=== PATIENT | female | born 1980 | race Caucasian/White ===

== ENCOUNTER 2018-01-25 22:07 | Emergency (ER) | payer OTHER ==
[~2018-01-25] VITALS: Ht 162.6 cm; Wt 95.3 kg
[2018-01-25 22:10] VITALS: BP 131/81
--- NOTE | 2018-01-25 22:13 | NUR ---
TO LOBBY A/W BED, LAURE ORTEGA NOTED
--- NOTE | 2018-01-25 22:49 | NUR ---
Patient ambulated to bed 1. RN evaluating patient at bedside.
--- NOTE | 2018-01-25 22:50 | NUR ---
ASSUMED CARE OF PT AT THIS TIME. C/O NECK PAIN AND DIZZINESS X 2 DAYS. AAOX4 WITH EVEN AND STEADY GAIT; 10 AT THIS TIME; VSS; PATIENT POSITIONED FOR COMFORT; HOB ELEVATED; BEDRAILS UP X2; BED DOWN. ER MD MADE AWARE OF PT STATUS. WILL CONTINUE TO MONITOR.
[2018-01-25] MEDS ORDERED: KETOROLAC 60 MG/2 ML VIAL IM ONE (23:40)
--- NOTE | 2018-01-25 23:46 | NUR ---
Patient transferred to bed 2 for further care. RN evaluating patient at bedside.
[2018-01-26 01:20] VITALS: BP 128/84
[2018-01-26 01:20] LABS: APPEARANCE,URINE CLEAR (CLEAR); BILIRUBIN,URINE NEGATIVE (NEGATIVE); BLOOD, URINE NEGATIVE (NEGATIVE); COLOR,URINE YELLOW (YELLOW); LEUKOCYTE ESTERASE ,URINE 1+ (NEGATIVE); NITRITE, URINE POSITIVE (NEGATIVE); PH,URINE 5.5 (5.0-9.0); UGLUCOSE NEGATIVE (NEGATIVE)
--- NOTE | 2018-01-26 01:20 | NUR ---
Patient discharged with v/s stable. Written and verbal after care instructions given and explained. Patient alert, oriented and verbalized understanding of instructions. Ambulatory with steady gait. All questions addressed prior to discharge. ID band removed. Patient advised to follow up with PMD. Rx of SOMA AND NAPROSYN given. Patient educated on indication of medication including possible reaction and side effects. Opportunity to ask questions provided and answered.
[2018-01-26 01:21] LABS: RBC,URINE 0-5 (RARE) /HPF (0-5); WBC,URINE 20-60 /HPF (0-5)
== END 2018-01-26 01:20 | disposition home or self-care (01) ==
LOC: MED 22:07
DX: S13.4XXA Sprain of ligaments of cervical spine, initial encounter (principal); N39.0 Urinary tract infection, site not specified; X58.XXXA Exposure to other specified factors, initial encounter; Y93.89 Activity, other specified; Y99.8 Other external cause status; Y92.89 Other specified places as the place of occurrence of the external cause
CPT/HCPCS: 81001; 81025; 87086; 87186; 96372; 99284; J1885; 81002

== ENCOUNTER 2018-01-27 01:56 | Emergency (ER) | payer OTHER ==
[~2018-01-27] VITALS: Ht 162.6 cm; Wt 96.2 kg
[2018-01-27 01:59] VITALS: BP 167/102
--- NOTE | 2018-01-27 02:00 | NUR ---
37 Y/O F W/C/O ALLERGIC REACTION. PT STATES, "I CAME HERE TWO DAYS AGO AND WAS GIVEN PRESCRIPTION FOR A UTI AND FOR PAIN. I HAVE BEEN TAKING THEM. I TOOK THEM THIS MORNING AT 1100 AND THEN WOKE UP AT 1500 AND I WAS ITCHING ALL OVER MY BODY AND I HAVE A RASH ON L LEG. MY EYE LIDS ARE SWOLLEN TOO. RASHED NOTED ON L HIP AND LEG. PT DENIES ANY N/V/D/PAIN. PT DENIES SOB. NO S/S OF DISTRESS NOTED. DR. CHAPMAN MADE AWARE
[2018-01-27] MEDS ORDERED: diphenhydrAMINE 50 MG CAP PO ONE ×2 (02:15→02:21)
[2018-01-27 02:56] VITALS: BP 151/110
--- NOTE | 2018-01-27 02:56 | NUR ---
Patient discharged with v/s stable. Written and verbal after care instructions given and explained. Patient alert, oriented and verbalized understanding of instructions. Ambulatory with steady gait. All questions addressed prior to discharge. ID band removed. Patient advised to follow up with PMD. Rx of benadryl given. Patient educated on indication of medication including possible reaction and side effects. Opportunity to ask questions provided and answered.
== END 2018-01-27 02:56 | disposition home or self-care (01) ==
LOC: MED 01:56
DX: R21 Rash and other nonspecific skin eruption (principal); T42.8X5A Adverse effect of antiparkinsonism drugs and other central muscle-tone depressants, initial encounter; Y92.9 Unspecified place or not applicable
CPT/HCPCS: 99283; Q0163

== ENCOUNTER 2018-02-02 10:05 | Emergency (ER) | payer OTHER ==
[~2018-02-02] VITALS: Ht 162.6 cm; Wt 97.5 kg
[2018-02-02 10:13] VITALS: BP 130/92
--- NOTE | 2018-02-02 10:20 | NUR ---
PT. CAME INTO THE ED DUE TO NECK PAIN X 1 WEEK. PT. STATES " I CAME HERE A WEEK AGO WHEN IT STARTED, THEY TOLD ME IHAD A NECK SPRAIN AND A URINARY INFECTION, SO HE GAVE ME MEDICATION FOR THE NECK PAIN AND INFECTION, I HAD A REACTION TO THE SOMA THAT THE DOCTOR GAVE ME AND HE DIDNT GIVE ME ANYTHING ELSE AND IM HAVING PAIN STILL". PT. IS AAOX4, RR EVEN AND UNLABORED, PT. DENIES SOB, DENIES N/V/D. PT. HAS 6/10 PAIN IN NECK THAT IS DESCRIBED THROBBING AND RADIATES FROM R SHOULDER TO R SIDE OF NECK. ER MD NOTIFIED. WILL CONTINUE TO MONITOR.
--- NOTE | 2018-02-02 10:49 | NUR ---
ER MD AT BEDSIDE EVALUATING PATIENT
[2018-02-02] MEDS ORDERED: LIDOCAINE MPF 1% - **ER/OR** 10 MG/ML VIAL INJ ONE (10:55)
[2018-02-02 11:55] VITALS: BP 126/90
--- NOTE | 2018-02-02 11:55 | NUR ---
Patient discharged with v/s stable. Written and verbal after care instructions given and explained. Patient verbalized understanding. Ambulatory with steady gait. All questions addressed prior to discharge. Advised to follow up with PMD.
== END 2018-02-02 11:55 | disposition home or self-care (01) ==
LOC: MED 10:05
DX: M62.830 Muscle spasm of back (principal); R03.0 Elevated blood-pressure reading, without diagnosis of hypertension; Z88.8 Allergy status to other drugs, medicaments and biological substances
CPT/HCPCS: 20552; 99284; J2001

== ENCOUNTER 2018-06-03 14:19 | Emergency (ER) | payer OTHER ==
[~2018-06-03] VITALS: Ht 162.6 cm; Wt 97.5 kg
[2018-06-03 14:30] VITALS: BP 118/69
--- NOTE | 2018-06-03 14:44 | NUR ---
PATIENT PRESENTS TO ED WITH THE CHIEF C/O RIGHT LOWER LEG PAIN. PT STATES PAIN OCCURS WHEN SHE WALKS FAST. DENIES N/V/D; SKIN IS PINK/WARM/DRY; AAOX4 WITH EVEN AND STEADY GAIT, PT DENIES ANY FEVER, CP, SOB, OR COUGH AT THIS TIME; PATIENT STATES PAIN OF 0/10 AT THIS TIME; VSS; PATIENT POSITIONED FOR COMFORT; HOB ELEVATED; BEDRAILS UP X2; BED DOWN. ER MD MADE AWARE OF PT STATUS.
--- NOTE | 2018-06-03 14:57 | NUR ---
PT TAKEN BY X-RAY TECH FOR RIGHT ANKLE X-RAY.
--- NOTE | 2018-06-03 15:02 | NUR ---
BACK FROM X-RAY.
--- NOTE | 2018-06-03 17:25 | NUR ---
PT AMBULATED FROM BED 2 TO E.
[2018-06-03 18:20] VITALS: BP 132/78
== END 2018-06-03 18:20 | disposition home or self-care (01) ==
LOC: MED 14:19
DX: M79.604 Pain in right leg (principal); Z88.8 Allergy status to other drugs, medicaments and biological substances
CPT/HCPCS: 73610; 81025; 93971; 99284; Q0092

== ENCOUNTER 2018-07-10 08:02 | Emergency (ER) | payer OTHER ==
[~2018-07-10] VITALS: Ht 162.6 cm; Wt 96.2 kg
[2018-07-10 08:16] VITALS: BP 136/88
--- NOTE | 2018-07-10 08:25 | NUR ---
PATIENT AMBULATED TO BED 3 AT THIS TIME.
--- NOTE | 2018-07-10 08:27 | NUR ---
PER MD, DO NOT COLLECT FLU/STREP SWABS AT THIS TIME.
--- NOTE | 2018-07-10 08:30 | NUR ---
38 YO F BIB FATHER W/ C/O COLD SYMPTOMS X 2 DAYS. COWAN, SORE THROAT, DRY COUGH, EARS PAIN/ITCHINESS, AND FACIAL PAIN R/T CONGESTION. LAST DOSE OF NYQUIL LAST NIGHT. HX DENIES. PATIENT STATES PAIN OF 10/10 AT THIS TIME; VSS; PATIENT POSITIONED FOR COMFORT; HOB ELEVATED; BEDRAILS UP X2; BED DOWN. ER MD MADE AWARE OF PT STATUS.
[2018-07-10] MEDS ORDERED: KETOROLAC 60 MG/2 ML VIAL IM ONE (08:40)
[2018-07-10 09:21] VITALS: BP 127/72
--- NOTE | 2018-07-10 09:21 | NUR ---
Patient discharged with v/s stable. Written and verbal after care instructions given and explained. Patient alert, oriented and verbalized understanding of instructions. Ambulatory with steady gait. All questions addressed prior to discharge. ID band removed. Patient advised to follow up with PMD. Rx of motrin, sudafed & prednisone given. Patient educated on indication of medication including possible reaction and side effects. Opportunity to ask questions provided and answered.
== END 2018-07-10 09:21 | disposition home or self-care (01) ==
LOC: MED 08:02
DX: J02.9 Acute pharyngitis, unspecified (principal); J32.9 Chronic sinusitis, unspecified; Z88.8 Allergy status to other drugs, medicaments and biological substances
CPT/HCPCS: 81002; 81025; 96372; 99283; J1885

== ENCOUNTER 2019-08-16 10:57 | Outpatient (CLI) | payer OTHER ==
[2019-08-16 11:34] LABS: BASOPHILS % (AUTO) 0.5 % (0.0-2.0); EOSINOPHILS # (AUTO) 0.1 K/uL (0-0.4); EOSINOPHILS % (AUTO) 2.3 % (0.0-4.0); HEMATOCRIT 38.8 % (36-48); LYMPHOCYTES # (AUTO) 1.5 K/uL (2.5-16.5); LYMPHOCYTES % (AUTO) 35.9 % (20.5-51.1); MEAN CORPUSCULAR HEMOGLOBIN 30 pg (27-31); MEAN CORPUSCULAR HGB CONC 33 g/dL (33-37); MEAN CORPUSCULAR VOLUME 90.7 fL (80-94); MONOCYTES # (AUTO) 0.3 K/uL (0.8-1.0); NEUTROPHILS # (AUTO) 2.2 K/uL (1.8-7.7); NEUTROPHILS % (AUTO) 53.3 % (42.2-75.2); PLATELET COUNT (AUTO) 229 K/uL (140-450); RED BLOOD CELL COUNT(AUTO) 4.27 MIL/uL (4.20-5.40); RED CELL DISTRIBUTION WIDTH 13.9 % (11.6-13.7); WHITE BLOOD COUNT (AUTO) 4.2 K/uL (4.8-10.8)
[2019-08-16 11:55] LABS: ALBUMIN 3.7 g/dL (3.4-5.0); ANION GAP 13.1 (8-16); CARBON DIOXIDE 29.1 mmol/L (21-32); CHOL/HDL RATIO 3.5 (1-4.5); CREATININE 0.7 mg/dL (0.6-1.3); POTASSIUM 4.2 mmol/L (3.5-5.1); THYROID STIMULATING HORMONE 7.53 uIU/mL (0.34-3.74); TOTAL BILIRUBIN 0.5 mg/dL (0.0-1.0)
== END 2019-08-16 20:22 | disposition home or self-care (01) ==
LOC: MLB 10:57
PROVIDERS: ATTEND Internal Medicine Geriatric Medicine
DX: Z00.00 Encounter for general adult medical examination without abnormal findings (principal)
CPT/HCPCS: 36415; 80053; 82306; 83036; 84443; 85025

== ENCOUNTER 2019-09-26 11:03 | Outpatient (CLI) | payer OTHER | END 2019-09-26 21:51 | disposition home or self-care (01) | LOC: MUS 11:03 | PROVIDERS: ATTEND Internal Medicine Geriatric Medicine | DX: K80.20 Calculus of gallbladder without cholecystitis without obstruction (principal); R74.0 Nonspecific elevation of levels of transaminase and lactic acid dehydrogenase [LDH] | CPT/HCPCS: 76705; Q0092 ==

== ENCOUNTER 2020-01-26 11:07 | Outpatient (CLI) | payer OTHER ==
[2020-01-26 12:44] LABS: BASOPHILS % (AUTO) 0.7 % (0.0-2.0); EOSINOPHILS # (AUTO) 0.1 K/uL (0-0.4); HEMATOCRIT 39.3 % (36-48); HEMOGLOBIN 13.1 g/dL (12.0-16.0); LYMPHOCYTES # (AUTO) 1.3 K/uL (2.5-16.5); LYMPHOCYTES % (AUTO) 29.3 % (20.5-51.1); MEAN CORPUSCULAR HEMOGLOBIN 31 pg (27-31); MEAN CORPUSCULAR HGB CONC 33 g/dL (33-37); MONOCYTES # (AUTO) 0.3 K/uL (0.8-1.0); MONOCYTES % (AUTO) 7.3 % (1.7-9.3); NEUTROPHILS # (AUTO) 2.8 K/uL (1.8-7.7); NEUTROPHILS % (AUTO) 60.7 % (42.2-75.2); PLATELET COUNT (AUTO) 237 K/uL (140-450); RED BLOOD CELL COUNT(AUTO) 4.23 MIL/uL (4.20-5.40); RED CELL DISTRIBUTION WIDTH 13.3 % (11.6-13.7); WHITE BLOOD COUNT (AUTO) 4.6 K/uL (4.8-10.8)
[2020-01-26 13:23] LABS: ALBUMIN 3.6 g/dL (3.4-5.0); ANION GAP 12.9 (8-16); CARBON DIOXIDE 29.2 mmol/L (21-32); CHOL/HDL RATIO 3.7 (1-4.5); CREATININE 0.8 mg/dL (0.6-1.3); POTASSIUM 4.1 mmol/L (3.5-5.1); THYROID STIMULATING HORMONE 7.46 uIU/mL (0.34-3.74); TOTAL BILIRUBIN 0.6 mg/dL (0.0-1.0)
[2020-01-27 09:13] LABS: FERRITIN 36 ng/mL (15-150); HEPATITIS B SURFACE ANTIBODY Non Reactive (.); HEPATITIS B SURFACE ANTIGEN Negative (Negative)
[2020-01-28 09:11] LABS: ANTI-NUCLEAR ANTIBODY,DIRECT Negative (Negative)
[2020-01-28 09:11] LABS: ALPHA-1-ANTITRYPSIN 140 mg/dL (100-188)
[2020-01-28 15:10] LABS: ANTI-NUCLEAR ANTIBODY TITER Negative (.)
[2020-01-30 15:19] LABS: ACTIN(SMOOTH MUSCLE) AB 14 Units (0-19)
== END 2020-01-26 19:42 | disposition home or self-care (01) ==
LOC: MLB 11:07
PROVIDERS: ATTEND Internal Medicine Geriatric Medicine
DX: E55.9 Vitamin D deficiency, unspecified (principal); K76.0 Fatty (change of) liver, not elsewhere classified
CPT/HCPCS: 36415; 80053; 82103; 82390; 82525; 82728; 83516; 84443; 85025; 86038; 86704; 86706; 86803; 87340

== ENCOUNTER 2020-03-30 20:38 | Emergency (ER) | payer OTHER ==
[~2020-03-30] VITALS: Ht 162.6 cm; Wt 95.3 kg
[2020-03-30 20:44] VITALS: BP 154/96
--- NOTE | 2020-03-30 20:50 | NUR ---
PT AMBULATED TO RESTROOM STEADY GAIT
--- NOTE | 2020-03-30 20:57 | NUR ---
PT AMBULATED TO BED 11 STEADY GAIT
--- NOTE | 2020-03-30 21:00 | NUR ---
PATIENT PRESENTS TO ED WITH C/O UTI X1 DAY. PT STATES ITCHING IN VAGINAL AREA. PT DENIES ANY FEVER, SOB, OR COUGH AT THIS TIME; PATIENT STATES PAIN OF 0/10 AT THIS TIME; VSS; PATIENT POSITIONED FOR COMFORT; HOB ELEVATED; BEDRAILS UP X2; BED DOWN. ER MD MADE AWARE OF PT STATUS. MED HX: DENIES ALLERGIES: CARISOPRODOL
--- NOTE | 2020-03-30 21:08 | NUR ---
ERMD AT BEDSIDE
--- NOTE | 2020-03-30 22:11 | NUR ---
Pelvic exam performed by DR REIS with RN at bedside for entire examination. Patient tolerated procedure well. Patient assisted to position of comfort after examination.
[2020-03-30 22:37] VITALS: BP 154/96
--- NOTE | 2020-03-30 22:37 | NUR ---
Patient discharged with v/s stable. Written and verbal after care instructions given and explained. Patient alert, oriented and verbalized understanding of instructions. Ambulatory with steady gait. All questions addressed prior to discharge. ID band removed. Patient advised to follow up with PMD. Rx of KEFLEX AND DIFLUCAN given. Patient educated on indication of medication including possible reaction and side effects. Opportunity to ask questions provided and answered.
== END 2020-03-30 22:37 | disposition home or self-care (01) ==
LOC: MED 20:38
DX: N39.0 Urinary tract infection, site not specified (principal); N89.9 Noninflammatory disorder of vagina, unspecified; Z88.8 Allergy status to other drugs, medicaments and biological substances
CPT/HCPCS: 81002; 81025; 99283; 99284

== ENCOUNTER 2020-07-24 08:00 | Emergency (ER) | payer OTHER ==
[~2020-07-24] VITALS: Ht 162.6 cm; Wt 99.8 kg
[2020-07-24 08:16] VITALS: BP 143/119
--- NOTE | 2020-07-24 08:20 | NUR ---
TENT 2
--- NOTE | 2020-07-24 08:30 | NUR ---
C/O NECK PAIN X 2 DAYS, COUGH X 2 WEEKS. PT HAD COVID TESTED + 07/10/20.
[2020-07-24] MEDS: KETOROLAC 30 MG/ML VIAL IM ONE (09:46)
[2020-07-24 10:06] VITALS: BP 133/119
--- NOTE | 2020-07-24 10:06 | NUR ---
Patient discharged with v/s stable. Written and verbal after care instructions given and explained. Patient alert, oriented and verbalized understanding of instructions. Ambulatory with steady gait. All questions addressed prior to discharge. ID band removed. Patient advised to follow up with PMD. Rx of DEXA, NAPROSYN & VALIUM given. Patient educated on indication of medication including possible reaction and side effects. Opportunity to ask questions provided and answered.
== END 2020-07-24 10:06 | disposition home or self-care (01) ==
LOC: MED 08:00
DX: M79.10 Myalgia, unspecified site (principal); F43.9 Reaction to severe stress, unspecified
CPT/HCPCS: 71045; 96372; 99283; J1885

== ENCOUNTER 2020-07-25 17:55 | Emergency (ER) | payer OTHER ==
[~2020-07-25] VITALS: Ht 172.7 cm; Wt 113.4 kg
[2020-07-25 18:01] VITALS: BP 138/95
--- NOTE | 2020-07-25 18:53 | NUR ---
C/O NECK PAIN X1 WEEK, PATIENT TAKING MUSCLE RELAXERS AND STEROIDS WITH NO RELIEF. NO TRAUMA TO AREA RECENTLY. NO OBVIOUS DEFORMITY NOTED, PATIENT ABLE TO PERFORM ROM TO NECK. NO PMH ALLERGIES: CARISOPRODOL
[2020-07-25] MEDS: MORPHINE SULFATE 4 MG/ML SYR IM ONE (19:03)
[2020-07-25 19:44] VITALS: BP 138/95
--- NOTE | 2020-07-25 19:44 | NUR ---
Patient discharged with v/s stable. Written and verbal after care instructions given and explained. Patient alert, oriented and verbalized understanding of instructions. Ambulatory with steady gait. All questions addressed prior to discharge. ID band removed. Patient advised to follow up with PMD. Rx of Robaxin given. Patient educated on indication of medication including possible reaction and side effects. Opportunity to ask questions provided and answered.
== END 2020-07-25 19:44 | disposition home or self-care (01) ==
LOC: MED 17:55
DX: S16.1XXA Strain of muscle, fascia and tendon at neck level, initial encounter (principal); Z88.8 Allergy status to other drugs, medicaments and biological substances; X58.XXXA Exposure to other specified factors, initial encounter; Y93.89 Activity, other specified; Y92.89 Other specified places as the place of occurrence of the external cause; Y99.8 Other external cause status
CPT/HCPCS: 96372; 99283; J2270

== ENCOUNTER 2020-09-26 21:19 | Emergency (ER) | payer OTHER ==
[~2020-09-26] VITALS: Ht 162.6 cm; Wt 113.4 kg
[2020-09-26 21:25] VITALS: BP 156/81
--- NOTE | 2020-09-26 21:25 | NUR ---
TO BED AMBULATORY
--- NOTE | 2020-09-26 21:40 | NUR ---
PATIENT BIB SELF FOR C/O DIZZYNESS X 6 HOURS. PATIENT ALSO PRESENTS WITH 3/10 COWAN IN TEMPORAL LOBE. PATIENT A&O X4. PERRLA 3MM BRISK. FACE SYMMETRICAL. ROM STRONG ON EQUAL. S1 S2 HEARD. DENIES N/V. PATIENT STATES "I'VE BEEN HAVING HOT FLASHES." SEE COMPLETE ASSESSMENT FOR FUTHER DETAILS. MEDHX: HYPOTHYROID ALLERGIES: NKA
--- NOTE | 2020-09-26 22:58 | NUR ---
ekg performed at bedside. ekg reads sinus rhythm @ 99
--- NOTE | 2020-09-26 23:38 | NUR ---
ERMD AT BEDSIDE EVALUATING PATIENT.
[2020-09-26] MEDS ORDERED: HYDR-39 PO (23:46)
[2020-09-26 23:55] VITALS: BP 147/81
--- NOTE | 2020-09-26 23:55 | NUR ---
Patient discharged with v/s stable. Written and verbal after care instructions given and explained. Patient alert, oriented and verbalized understanding of instructions. Ambulatory with steady gait. All questions addressed prior to discharge. ID band removed. Patient advised to follow up with PMD. Rx of LISINOPRIL given. Patient educated on indication of medication including possible reaction and side effects. Opportunity to ask questions provided and answered.
== END 2020-09-26 23:55 | disposition home or self-care (01) ==
LOC: MED 21:19
DX: I10 Essential (primary) hypertension (principal); E07.9 Disorder of thyroid, unspecified; Z88.8 Allergy status to other drugs, medicaments and biological substances; Z79.899 Other long term (current) drug therapy
CPT/HCPCS: 93005; 99283

== ENCOUNTER 2020-11-28 14:48 | Outpatient (CLI) | payer OTHER ==
[~2020-11-28 14:48] MED LIST: HYDR-39 PO
== END 2020-11-28 21:27 | disposition home or self-care (01) ==
LOC: MUS 14:48
DX: R10.2 Pelvic and perineal pain (principal)
CPT/HCPCS: 76856

== ENCOUNTER 2022-09-11 11:22 | Emergency (ER) | payer OTHER ==
[~2022-09-11] VITALS: Ht 162.6 cm; Wt 104.3 kg
[~2022-09-11 11:22] MED LIST changes: +HYDR-2853 PO; -HYDR-39 PO
[2022-09-11 11:37] VITALS: BP 148/89
--- NOTE | 2022-09-11 11:39 | NUR ---
42/F WALKED IN C/O SORE THROAT X 1DAY. DENIES FEVER COUGH OR PHLEGM. PT ALSO REPORTS B/L EYE IRRITATION AND EAR IRRITATION. REPORTS TAKING ALLERGY MED WITH NO RELIEF. AFEBRILE AT TRIAGE PMH: DENIES
--- NOTE | 2022-09-11 12:49 | NUR ---
PT SWABBED FOR COVID, FLU, AND STREP AND SENT TO LAB
[2022-09-11] MEDS ORDERED: IBUP-1842 PO (14:27)
[2022-09-11 14:33] VITALS: BP 148/89
--- NOTE | 2022-09-11 14:34 | NUR ---
Patient discharged with v/s stable. Written and verbal after care instructions given and explained. Patient alert, oriented and verbalized understanding of instructions. Ambulatory with steady gait. All questions addressed prior to discharge. ID band removed. Patient advised to follow up with PMD. Rx of IBUPROFEN (SENT) given. Patient educated on indication of medication including possible reaction and side effects. Opportunity to ask questions provided and answered. X2 WORK NOTES GIVEN COPY OF LABS GIVEN
== END 2022-09-11 14:34 | disposition home or self-care (01) ==
LOC: MED 11:22
DX: J06.9 Acute upper respiratory infection, unspecified (principal); Z20.822 Contact with and (suspected) exposure to COVID-19; Z88.8 Allergy status to other drugs, medicaments and biological substances
CPT/HCPCS: 87081; 99283

== ENCOUNTER 2023-09-15 15:11 | Emergency (ER) | payer OTHER ==
[~2023-09-15] VITALS: Ht 162.6 cm; Wt 104.3 kg
[~2023-09-15 15:11] MED LIST changes: +IBUP-1842 PO
[2023-09-15 15:35] VITALS: BP 134/89; PULSE 72; RESP 20; TEMP 97.7; O2SAT 98
[2023-09-15] MEDS ORDERED: IBUP-1842 PO (16:03)
[2023-09-15] MEDS ORDERED: AMOX875T3 PO (16:03)
[2023-09-15] MEDS ORDERED: ACET-10509 PO (16:03)
== END 2023-09-15 16:08 | disposition home or self-care (01) ==
LOC: MED 15:11
DX: H66.91 Otitis media, unspecified, right ear (principal); E03.9 Hypothyroidism, unspecified; Z79.899 Other long term (current) drug therapy
CPT/HCPCS: 99283